=== PATIENT | female | born 1985 | race Caucasian/White ===

== ENCOUNTER 2017-03-07 14:29 | Day surgery (SDC) | payer BC, OTHER ==
[~2017-03-07] VITALS: Ht 170.2 cm; Wt 110.7 kg
[2017-03-07] VITALS (19 sets, daily range): BP systolic 93–128; BP diastolic 58–86; PULSE 64–93; RESP 13–25; Ht 170.2 cm; Wt 110.7 kg
[~2017-03-07 14:29] MED LIST: CEFAZOLIN 1 GM INJ ONE; PROPOFOL 200 MG INJ ONE
[2017-03-07] MEDS ORDERED: IBUP-1542 PO (15:02)
[2017-03-07] MEDS ORDERED: HYDR-902 PO (15:02)
--- NOTE | 2017-03-07 17:22 | HPN ---
Date/Time of Note Date/Time of Note DATE: 03/07/17 TIME: 17:22 Interval H&P Admission Note Pt. seen H&P reviewed: No system changes JEFFREY LAYTON Mar 07, 2017 17:22
[2017-03-07] MEDS ORDERED: BUPIVACAINE 0.5% (MPF) 30 ML INJ INJ ONE (17:36)
[2017-03-07] MEDS ORDERED: LIDOCAINE 1% (MPF) 30 ML INJ INJ ONE (17:36)
[2017-03-07] MEDS ORDERED: BUPIVACAINE 0.5% (SDV) 30 ML INJ ONE (18:08)
[2017-03-07] MEDS ORDERED: POVIDONE IODINE 10% 28.4 GM OINT ONE (18:08)
[2017-03-07] MEDS ORDERED: LIDOCAINE 1% (STERILE-PAK) 30 ML INJ ONE (18:21)
[2017-03-07] MEDS ORDERED: MIDAZOLAM 1 MG/ML 2 ML INJ ONE (18:25)
[2017-03-07] MEDS ORDERED: FENTAnyl 50 MCG/ML VIAL ONE (18:25)
[2017-03-07] MEDS ORDERED: KETOROLAC 30 MG INJ ONE (18:32)
--- NOTE | 2017-03-07 19:17 | OPR ---
Date/Time of Note Date/Time of Note DATE: 03/07/17 TIME: 19:16 Operative Report Preoperative Diagnosis Right wrist dorsal ganglion Postoperative Diagnosis Right wrist dorsal ganglion Operation/Procedure Performed Excision of right wrist dorsal ganglion Surgeon: JEFFREY LAYTON Anesthesia Type: MAC, other Estimated Blood Loss: 0 - 10 ml's Transfusion Required: no Specimen: none Grafts/Implants: none Complications: no JEFFREY LAYTON Mar 07, 2017 19:17
[2017-03-07] MEDS ORDERED: ONDANSETRON 4 MG INJ IV PRN (19:30)
[2017-03-07] MEDS ORDERED: HYDROmorphONE (0.2 MG/ML) 10ML SYG IV PRN (19:30)
--- NOTE | 2017-03-08 02:00 | OPR ---
DATE OF OPERATION: 03/07/2017 SURGEON: Cesar New MD PREOPERATIVE DIAGNOSIS: Right wrist dorsal ganglion. POSTOPERATIVE DIAGNOSIS: Right wrist dorsal ganglion. OPERATIVE PROCEDURE: Excision of right wrist dorsal ganglion. ANESTHESIA: Local, MAC. ESTIMATED BLOOD LOSS: 5 mL. SPONGE, INSTRUMENT, AND NEEDLE COUNTS: Correct. TOURNIQUET TIME: 20 minutes. SPECIMENS: None. CONDITION ON DISCHARGE: Stable. OPERATIVE FINDINGS: Ganglion cyst arising from the scapholunate interval. INDICATION FOR PROCEDURE: This is a the 31-year-old female with longstanding right wrist pain. She was diagnosed with a ganglion cyst and had persistent pain, failing conservative management, and elected to proceed with surgical intervention, understanding the risks, benefits. DESCRIPTION OF PROCEDURE: The patient was seen in the preoperative area and all further questions were answered. Again, she gave informed consent, understanding the risks and benefits. She was taken to the operative suite and placed in the supine position. Ancef 2 g was given and tourniquet placed on right upper extremity. The right upper extremity was prepped with ChloraPrep stick and draped in the usual sterile fashion. Esmarch bandage was used to exsanguinate the extremity and tourniquet inflated to 250 mmHg. A 10 mL volume of a 50-50 mixture of 0.5 percent Marcaine and 1 percent lidocaine was injected at the surgical site. Sharp dissection carried down through skin and subcutaneous tissue. Scissor dissection revealed the extensor retinaculum and the 3rd dorsal compartment was visualized, and the EPL tendon was transposed out of the 3rd dorsal compartment. The 2nd dorsal compartment was retracted radially and the 4th dorsal compartment was elevated off the dorsal wrist capsule. The dorsal wrist capsule was visualized and was incised overlying the scapholunate ligament. A ganglion cyst was visualized arising from the scapholunate interval and the cyst was excised. The scapholunate ligament was smoothed out on its dorsal aspect and Bovie electrocautery was used to gently coagulate the dorsal capsule and superficially on the scapholunate ligament. The wound was copiously irrigated and the skin closed with 4-0 nylon. Xeroform placed on the wound followed by sterile gauze, Webril, and a short-arm splint. Tourniquet deflated after 20 minutes and the patient was awakened from anesthesia. She was taken to the postoperative suite in stable condition and tolerated the procedure well with no complication. Dictated By: Cesar New MD /[email or web address] /Document#: [id number]
== END 2017-03-07 21:04 | disposition home or self-care (01) ==
LOC: SDS 14:29
PROVIDERS: ATTEND Orthopaedic Surgery Hand Surgery
DX: M67.431 Ganglion, right wrist (principal)
CPT/HCPCS: 25111; J0690; J1170; J1885; J2250; J2405; J3010; Z7512; Z7610

== ENCOUNTER 2018-02-17 18:03 | Emergency (ER) | END 2018-02-17 21:40 | disposition home or self-care (01) ==